=== PATIENT | female | born 1985 | race Caucasian/White ===

== ENCOUNTER 2016-11-12 18:23 | Emergency (ER) | payer MEDICAID ==
[~2016-11-12] VITALS: Ht 154.9 cm; Wt 65.2 kg
[~2016-11-12 18:23] MED LIST: IBUP-1223 PO; OXYC-302 PO
[2016-11-12] MEDS ORDERED: SODIUM CHLORIDE FLUSH 10ML SYR IVF ONE ×2 (19:00→20:30)
[2016-11-12] MEDS ORDERED: SODIUM CHLORIDE 0.9% 1,000ML IVBOLUS ONE (19:00)
[2016-11-12 20:22] LABS: HEMATOCRIT 42.6 % (34.6-47.8); HEMOGLOBIN 14.6 g/dL (11.7-16.4); WHITE BLOOD COUNT 10.4 x10^3/uL (3.4-10)
[2016-11-12 20:28] LABS: ASPARTATE AMINO TRANSFERASE 17 U/L (15-37); BLOOD UREA NITROGEN 12 mg/dL (7-18); DAU SCREEN DISCLAIMER
[2016-11-12] MEDS ORDERED: HYDROmorphone 1 MG/ML, 1ML IVPush ONE (20:30)
[2016-11-12] MEDS ORDERED: FAMOTIDINE 20 MG/2 ML IVP ONE (20:30)
[2016-11-12] MEDS ORDERED: ONDANSETRON 2MG/ML, 2ML IVPush ONE (20:30)
[2016-11-12] MEDS ORDERED: HYDROmorphone 1 MG/ML, 1ML ONE ×2 (20:30→22:06)
[2016-11-12] MEDS ORDERED: FAMOTIDINE 20 MG/2 ML ONE (20:31)
[2016-11-12] MEDS ORDERED: ONDANSETRON 2MG/ML, 2ML ONE ×2 (20:31→23:58)
[2016-11-12] MEDS ORDERED: HYDROmorphone 1 MG/ML, 1ML IV ONE (22:00)
[2016-11-12] MEDS ORDERED: PANTOPRAZOLE 40 MG IV ONE (23:45)
[2016-11-13] MEDS ORDERED: PANTOPRAZOLE 40 MG IV IVPush ONE
[2016-11-13 00:16] VITALS: BP 111/63
[2016-11-13] MEDS ORDERED: ONDANSETRON 2MG/ML, 2ML IVPush ONE (00:30)
[2016-11-13] MEDS ORDERED: OMNIPAQUE 350 MG/ML, 100ML BOTTLE ONE (01:17)
== END 2016-11-13 00:18 | disposition home or self-care (01) ==
LOC: ED 21:19
DX: R10.11 Right upper quadrant pain (principal); K21.9 Gastro-esophageal reflux disease without esophagitis; Z90.49 Acquired absence of other specified parts of digestive tract
CPT/HCPCS: 36415; 74177; 80053; 80307; 81001; 83690; 84703; 85025; 87086; 96361; 96374; 96375; 96376; 99285; C9113; J1170; J2405; J7030; Q9967; G0479; S0028